=== PATIENT | male | born 1995 ===

== ENCOUNTER 2016-12-07 15:37 | Emergency (ER) | payer OTHER ==
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
--- NOTE | 2016-12-07 18:27 | RAD ---
INDICATION: Back injury. COMPARISON: There are no prior studies available for comparison. TECHNIQUE: AP and lateral films of the dorsal spine were obtained. FINDINGS: The vertebra are in normal alignment. No fracture is seen. Disc spaces appear maintained. IMPRESSION: NO EVIDENCE FOR FRACTURE.
--- NOTE | 2016-12-07 18:29 | RAD ---
INDICATION: Left rib injury. TECHNIQUE: 3 views of the left ribs were obtained. FINDINGS: No fracture or significant focal osseous abnormality is seen. IMPRESSION: NO EVIDENCE FOR FRACTURE.
== END 2016-12-07 18:55 | disposition home or self-care (01) ==
LOC: UCCORT 15:37
DX: S24.0XXA Concussion and edema of thoracic spinal cord, initial encounter (principal); S20.212A Contusion of left front wall of thorax, initial encounter; W23.1XXA Caught, crushed, jammed, or pinched between stationary objects, initial encounter; Y93.89 Activity, other specified; Y92.79 Other farm location as the place of occurrence of the external cause; Y99.0 Civilian activity done for income or pay
CPT/HCPCS: 72070; 99202; G0463